=== PATIENT | female | born 1990 | race Two or more races ===

== ENCOUNTER 2020-04-20 13:02 | Outpatient (CLI) | payer OTHER | END 2020-04-20 23:59 | disposition home or self-care (01) | LOC: CFH 13:02 | PROVIDERS: ATTEND Urology | DX: R39.198 Other difficulties with micturition (principal) | CPT/HCPCS: 76770 ==

== ENCOUNTER 2021-08-02 15:09 | Outpatient (CLI) | payer OTHER | END 2021-08-02 23:59 | disposition home or self-care (01) | LOC: LAB 15:09 | PROVIDERS: ATTEND Internal Medicine | DX: E55.9 Vitamin D deficiency, unspecified (principal) | CPT/HCPCS: 36415; 82306 ==